=== PATIENT | female | born 1960 | race Caucasian/White ===

== ENCOUNTER 2022-01-29 08:54 | Outpatient (CLI) | payer OTHER, SELFPAY ==
--- NOTE | 2022-01-29 09:13 | US_ITS ---
WS: [id number] ULTRASOUND-GUIDED RIGHT AXILLARY BIOPSY CLINICAL INFORMATION: LUMP IN AXILLARY TAIL OF RIGHT BREAST FINDINGS: The procedure including risks, benefits, and complications were discussed with the patient who agreed to proceed. Using sterile technique patient was prepped and draped in the usual sterile fashion. Aft er 1% lidocaine utilizing real-time ultrasound guidance 4 14-gauge cores were obtained of the RIGHT a xillary lesion in the RIGHT axilla. Subsequently a titanium clip was placed in the biopsy cavity. No immediate complications. Pathology demonstrates A. Breast, right, axillary mass , biopsy: -Sinus histiocytosis. -No monotypic B-cell or T-cell population detected. -Negative for malignancy. US/[place] [id number] IMPRESSION: Surgical excision recommended for more definitive evaluation. 1. Uncomplicated ultrasound-guided RIGHT axillary biopsy. 2. The pathology demonstrates Sinus histiocytosis. No evidence of malignancy. 3. Enlarged RIGHT axillary abnormal appearing lymph node is persistent compare d to the outside imaging September 2021. Despite the above pathology samples, co nsidering the size and appearance of the lesion, recommend surgical excision fo r more definitive evaluation. BI-RADS: 4-Suspicious Finding-Biopsy Should Be Considered FOLLOW UP: Surgical Biopsy Recommended
[2022-02-02 10:22] LABS: Lymphoma Profile (BBPL) See Report
== END 2022-01-29 08:55 | disposition home or self-care (01) ==
LOC: RAD 09:00
PROVIDERS: PCP Nurse Practitioner Family; Visit Provider Nurse Practitioner Family
DX: N63.31 Unspecified lump in axillary tail of the right breast (principal)
CPT/HCPCS: 19083; 88184; 88185; 88305